=== PATIENT | female | born 1985 | race African-American/Black ===

== ENCOUNTER 2021-01-28 10:58 | Emergency (ER) | payer OTHER, SELFPAY ==
[2021-01-28 11:09] VITALS: BP 127/72; PULSE 79; RESP 16; TEMP 37.2; O2SAT 100
[2021-01-28 11:35] VITALS: BP 127/72; PULSE 79; RESP 16; TEMP 37.2; O2SAT 100
--- NOTE | 2021-01-28 11:37 | ED.ABDPAIN ---
HPI - Abdominal Pain General Chief Complaint: Abdominal Pain Stated Complaint: abd pain/hannah/nausea Source: patient and RN notes reviewed Mode of arrival: ambulatory History of Present Illness HPI narrative: This is a 35-year-old female presented to our urgent care with complaints of headache, abdominal pain, diarrhea that all occurred last night. According to patient she did not do anything at home to relieve her pain she also notes that the right increases the pain of her headache. The patient denies SOB, CP, palpitation, extremity numbness, lightheadedness, dizziness, constipation, chills, or fever. Related Data Home Medications Medication Instructions Recorded Confirmed cholecalciferol (vitamin D3) 01/28/21 levetiracetam [Keppra] 500 mg PO BID 01/28/21 01/28/21 Allergies Allergy/AdvReac Type Severity Reaction Status Date / Time No Known Allergies Allergy Verified 01/28/21 11:09 Review of Systems Review of Systems: A 14 organ system Review of Systems was performed and pertinent positives included in the HPI, otherwise remaining ROS is negative. [facility] Family History Family History (Updated 01/28/21 @ 11:38 by KIET DavisonP-C) Other Family history non-contributory Exam Narrative: GENERAL: This is a well-nourished, well-developed patient, in no apparent distress. HEAD: normocephalic, atraumatic. EYES: PERRL. Sclera clear/white. Vision is grossly intact. EARS: External ears normal, auditory canals clear and without drainage, TMs normal without perforation. Hearing grossly intact. NOSE: External nose normal with no obvious nasal discharge, nares without redness, no rhinorrhea. THROAT: Mucous membranes moist, posterior pharynx clear. NECK: Neck supple, non-tender without lymphadenopathy, masses or thyromegaly. CARDIOVASCULAR: Regular rate and rhythm without murmurs, gallops, or rubs. RESPIRATORY: Clear to auscultation. Breath sounds equal bilaterally. No wheezes, rales, or rhonchi. GASTROINTESTINAL: Abdomen soft, non-tender, nondistended. Bowel sounds are active. No hepato-splenomegaly, or palpable masses. No guarding. SKIN: warm, intact with no suspicious lesions or rash, good texture and turgor. NEURO: awake, alert, and oriented to person, place and time. There were no obvious focal neurologic abnormalities. Steady gait EXTREMITIES: Normal range of motion. No edema. No calf tenderness. Negative Homans sign bilaterally. BACK: Nontender without deformity or crepitance. No flank tenderness. Course Course Emergency Course: Patient diagnosed with gastroenteritis instructed to remain hydrated and use [id number] medication for treat Vital Signs Vital signs: Vital Signs Temperature 98.9 F 01/28/21 11:09 Pulse Rate 79 01/28/21 11:09 Respiratory Rate 16 01/28/21 11:09 Blood Pressure 127/72 01/28/21 11:09 Pulse Oximetry 100 01/28/21 11:09 Temperature 98.9 F 01/28/21 11:35 Pulse Rate 79 01/28/21 11:35 Respiratory Rate 16 01/28/21 11:35 Blood Pressure 127/72 01/28/21 11:35 Pulse Oximetry 100 01/28/21 11:35 MDM - Abdominal Pain Differential Diagnosis Differential diagnosis: Likely abdominal pain, diverticulitis and gastroenteritis Discharge Plan Discharge Clinical Impression: Gastroenteritis Patient Disposition: Home, Self-Care Condition: Stable Instructions: Antibiotic Form, Gastroenteritis (ED) Additional Instructions: What are the symptoms of gastritis? - People with gastritis have no symptoms. When people do have symptoms, they are due to other conditions that can happen with gastritis, like ulcers. Symptoms from ulcers include: Pain in the upper belly Feeling bloated, or feeling full after eating a small amount of food Decreased appetite Nausea or vomiting Vomiting blood, or having black-colored bowel movements Feeling more tired than usual - This happens if people with gastritis get a condition called anemia. Should I call my doct
== END 2021-01-28 11:52 | disposition home or self-care (01) ==
PROVIDERS: Emergency Provider Nurse Practitioner
DX: K52.9 Noninfective gastroenteritis and colitis, unspecified (principal)
CPT/HCPCS: 99202; G0463

== ENCOUNTER 2021-02-17 14:14 | Emergency (ER) | payer OTHER, SELFPAY ==
[2021-02-17 14:29] VITALS: BP 117/68; PULSE 79; RESP 16; TEMP 37.3; O2SAT 98
--- NOTE | 2021-02-17 15:00 | ED.BACK ---
HPI - Back Pain/Injury General Chief Complaint: Back Pain/Injury Stated Complaint: NECK/BACK PAIN Time Seen by Provider: 02/17/21 15:00 Source: patient, RN notes reviewed and old records reviewed Mode of arrival: ambulatory Limitations: no limitations History of Present Illness HPI Narrative: 35-year-old female presents to the [facility] with complaints of neck and back pain since yesterday. Requesting an work note. Denies injury. No numbness or tingling in extremities. No loss retention of bowel or bladder. Pain or abdominal pain. Related Data Home Medications Medication Instructions Recorded Confirmed levetiracetam 500 mg PO DAILY 02/17/21 02/17/21 Allergies Allergy/AdvReac Type Severity Reaction Status Date / Time Penicillins Allergy Unknown Verified 02/17/21 15:06 Review of Systems Review of Systems: All systems reviewed & are unremarkable except as noted in HPI and below Constitutional: Constitutional: Reports no additional constitutional complaints, Denies chills and Denies fever(s) Eyes: Eyes: Reports no additional eye complaints ENT: Reports system reviewed and no additional complaints, except as documented Cardiovascular: Cardiovascular: Reports no additional cardiovascular complaints and Denies chest pain Respiratory: Respiratory: Reports no additional respiratory complaints, Denies chest congestion, Denies cough, Denies dyspnea and Denies wheezing Gastrointestinal: Gastrointestinal: Reports no additional gastrointestinal complaints, Denies abdominal pain, Denies diarrhea, Denies nausea and Denies vomiting Genitourinary: Genitourinary: Reports no additional female genitourinary complaints Musculoskeletal: Musculoskeletal: Reports as per HPI and Reports back pain (Lower) Integumentary/Breasts: Skin/Breast: Reports system reviewed and no additional complaints, except as docu Neurologic: Reports system reviewed and no additional complaints, except as documented Psychiatric: Psychiatric: Reports no additional psychiatric complaints Allergic/Immunologic: Allergic/Immunologic: Reports no additional allergic/immunologic complaints PMFSH Family History Family History Other Family history non-contributory Comments At the time of my signature, I reviewed and agree with the nursing past medical, surgical, social, and family history. There is no relevant family history pertinent to the patient complaint. Exam Const: General: healthy appearing, no acute distress and alert Nutritional Appearance: well nourished Orientation/consciousness: patient oriented x3 Limitations: no limitations HENMT: Head: normal to inspection Neck: Neck: normal visual inspection, no lymphadenopathy and no meningeal signs Chest: Chest palpation & inspection: normal inspection of the chest Resp: Effort & Inspection: normal respiratory effort Auscultation: clear to auscultation bilaterally Cardio: Rate: regular rate Rhythm: regular rhythm GI: GI Palp: Yes Soft to palpation and No Tenderness to palpation present (GI) Back/Spine/Pelvis: Back: no CVA tenderness Neuro: General: patient oriented x3, moves all extremities, no meningeal signs and no focal motor deficits Speech: normal speech Gait exam (Neuro): Normal gait present Extrem: General: normal to inspection Psych: Appearance: grossly normal and well kempt Mental Status: mental status grossly normal Affect: normal affect Attitude: cooperative Thought content: Yes Normal thought content present Course Course Emergency Course: Discharge instructions reviewed with patient, as well as provided in writing per nursing staff. The instructions also include specific and strict return/GO TO THE ER as well as f/u information. All questions have been answered, and the patient deny any further questions with discharge and discharge plan. Vital Signs Vital signs: Vital Signs Temperature 99.1 F 02/17/21 14:29 P
== END 2021-02-17 15:10 | disposition home or self-care (01) ==
PROVIDERS: Emergency Provider Nurse Practitioner
DX: S39.012A Strain of muscle, fascia and tendon of lower back, initial encounter (principal); X58.XXXA Exposure to other specified factors, initial encounter; G40.909 Epilepsy, unspecified, not intractable, without status epilepticus
CPT/HCPCS: 99213; G0463

== ENCOUNTER 2021-04-17 12:08 | Emergency (ER) | payer OTHER, SELFPAY ==
[2021-04-17 12:18] VITALS: BP 107/70; PULSE 61; RESP 18; TEMP 36.8; O2SAT 100
--- NOTE | 2021-04-17 12:22 | ED.DENTAL ---
HPI - Dental/Oral General Chief complaint: Dental/Oral Stated complaint: Head/tooth/back pain Time Seen by Provider: 04/17/21 12:22 Source: patient Mode of arrival: ambulatory Limitations: no limitations History of Present Illness HPI Narrative: Thu Cespedes is a 35 yo female with a PMH of seizures comes with dental pain in upper R molar and headache x 2 days Related Data Home Medications Medication Instructions Recorded Confirmed levetiracetam 500 mg PO DAILY 02/17/21 04/17/21 Allergies Allergy/AdvReac Type Severity Reaction Status Date / Time Penicillins Allergy Unknown Verified 02/17/21 15:06 Review of Systems Review of Systems: CONSTITUTIONAL: Denies fever, chills, sweats. Dental pain of the left EYES: Denies visual changes, redness, discharge. ENT: Denies rhinorrhea, congestion, sore throat, otalgia. CARDIOVASCULAR: Denies chest pain, palpitations, edema. RESPIRATORY: Denies dyspnea, wheezing, cough GASTROINTESTINAL: Denies abdominal pain, nausea, vomiting, diarrhea. GENITOURINARY: Denies dysuria, hematuria, abnormal discharge SKIN: Denies rash or itching. NEUROLOGIC: Denies numbness, or focal weakness. PSYCHIATRIC: Denies anxiety or depression. PMFSH Past Medical History Medical History Chronic dental pain Seizures Family History Family History Other Family history non-contributory Social History Social History (Updated 04/17/21 @ 12:38 by Rachael Lua CNP) Smoking status: Never smoker Alcohol intake: never Comments At time of signature, I agree with nursing past medical, surgical, social and family history. There is no relevant family history pertinent to the presenting complaint. Exam Narrative: GENERAL: This is a well-nourished, well-developed patient, in mild distress. HEAD: normocephalic, atraumatic. EYES: . Sclera clear/white. Vision is grossly intact. EARS: External ears normal, . Hearing grossly intact. NOSE: External nose normal without nasal discharge, nares without redness, no rhinorrhea. Mouth: poor dentition, R upper teeth appear chipped, 1 loose THROAT: Mucous membranes moist, posterior pharynx NECK: Neck supple, non-tender CARDIOVASCULAR: Regular rate and rhythm without murmurs, gallops, or rubs. RESPIRATORY: Clear to auscultation. Breath sounds equal bilaterally. No wheezes, rales, or rhonchi. GASTROINTESTINAL: Abdomen soft, non-tender, SKIN: warm, intact with no suspicious lesions or rash, good texture and turgor. NEURO: awake, alert, and oriented to person, place and time. There were no obvious focal neurologic abnormalities. Steady gait EXTREMITIES: Normal range of motion. BACK: Nontender without deformity plan to resume Course Course Emergency Course: Patient comes to [facility] with right upper molar dental pain has been going on for few days that she states is getting worse she is allergic to penicillin so is usually given clindamycin and high-dose ibuprofen and Tylenol No. 3 for pain; patient needs a work excuse also for today Level of Care: Express Care Visit Vital Signs Vital signs: Vital Signs Temperature 98.3 F 04/17/21 12:18 Pulse Rate 61 04/17/21 12:18 Respiratory Rate 18 04/17/21 12:18 Blood Pressure 107/70 04/17/21 12:18 Pulse Oximetry 100 04/17/21 12:18 Temperature 98.3 F 04/17/21 12:18 Pulse Rate 61 04/17/21 12:18 Respiratory Rate 18 04/17/21 12:18 Blood Pressure 107/70 04/17/21 12:18 Pulse Oximetry 100 04/17/21 12:18 MDM - Dental/Oral Differential Diagnosis Differential diagnosis: Likely gingival abscess, dental caries, toothache, dental abscess, fracture of tooth and other Critical Care Time Critical Care Time Critical Care Time: No Discharge Plan Discharge Clinical Impression: Toothache Patient Disposition: Home, Self-Care Condition: Stable Instructions: Antib
== END 2021-04-17 12:54 | disposition home or self-care (01) ==
PROVIDERS: Emergency Provider Nurse Practitioner
DX: K08.89 Other specified disorders of teeth and supporting structures (principal); G40.909 Epilepsy, unspecified, not intractable, without status epilepticus
CPT/HCPCS: 99213; G0463

== ENCOUNTER 2022-01-25 12:43 | Emergency (ER) | payer OTHER, SELFPAY ==
[2022-01-25 12:55] VITALS: BP 110/75; PULSE 79; RESP 18; TEMP 37.3; O2SAT 100
--- NOTE | 2022-01-25 13:18 | ED.GENADULT ---
HPI - General Adult General Chief complaint: Headache Stated complaint: Headache, Abdominal Pain Time Seen by Provider: 01/25/22 12:55 Source: patient, RN notes reviewed and old records reviewed Mode of arrival: ambulatory Limitations: no limitations History of Present Illness HPI narrative: 36-year-old female presents to the [facility] with complaints of feeling fevers, chills, sweats and having a headache that started at 4:00 a.m. this morning. Patient reports pain a 03/02. Has not taken anything for pain. States that she did take her Keppra this morning. Requesting a work note Related Data Home Medications Medication Instructions Recorded Confirmed levetiracetam 500 mg tablet 500 mg PO BID 02/17/21 01/25/22 Allergies Allergy/AdvReac Type Severity Reaction Status Date / Time Penicillins Allergy Unknown Verified 02/17/21 15:06 Review of Systems Review of Systems: All systems reviewed & are unremarkable except as noted in HPI and below Constitutional: Constitutional: Reports as per HPI, Reports chills and Reports headache(s) Eyes: Eyes: Reports no additional eye complaints ENT: Reports system reviewed and no additional complaints, except as documented Cardiovascular: Cardiovascular: Reports no additional cardiovascular complaints, Denies chest pain and Denies dyspnea Respiratory: Respiratory: Reports no additional respiratory complaints, Denies chest congestion, Denies cough and Denies dyspnea Gastrointestinal: Gastrointestinal: Reports no additional gastrointestinal complaints, Denies abdominal pain, Denies nausea and Denies vomiting Musculoskeletal: Musculoskeletal: Reports no additional musculoskeletal complaints Integumentary/Breasts: Skin/Breast: Reports system reviewed and no additional complaints, except as docu Neurologic: Reports system reviewed and no additional complaints, except as documented Psychiatric: Psychiatric: Reports no additional psychiatric complaints Allergic/Immunologic: Allergic/Immunologic: Reports no additional allergic/immunologic complaints [facility] Past Medical History Medical History Chronic dental pain Seizures Family History Family History Other Family history non-contributory Social History Social History Smoking status: Never smoker Alcohol intake: never Comments At the time of my signature, I reviewed and agree with the nursing past medical, surgical, social, and family history. There is no relevant family history pertinent to the patient complaint. Exam Const: General: cooperative, healthy appearing, comfortable, no acute distress, well developed, alert, average body habitus and well nourished Nutritional Appearance: average body habitus and well nourished Orientation/consciousness: patient oriented x3 Limitations: no limitations HENMT: Head: normal to inspection Ears: hearing grossly normal bilaterally and external ears normal Face/Nose/Sinus: Normal external nose present, Normal nares present, Normal nasal mucous membranes and turbinates present and normal facial exam Face and sinus: normal facial exam Mouth: Yes Normal oral and palatal mucosa present, Yes lip normal and Yes moist mucous membranes Throat: posterior oropharynx normal and uvula midline Eyes: General: appearance normal, both eyes and all related structures Alignment and Position: alignment normal Periorbital: periorbital findings normal Conjunctivae: conjunctivae normal Pupils: Equal, round and reactive pupils present EOM: EOMs intact bilaterally Neck: Neck: normal visual inspection, full ROM, no lymphadenopathy and no meningeal signs Chest: Chest palpation & inspection: normal inspection of the chest Resp: Effort & Inspection: normal respiratory effort and able to speak in complete sentences Auscultation: clear
== END 2022-01-25 14:00 | disposition home or self-care (01) ==
PROVIDERS: Emergency Provider Nurse Practitioner
DX: H51.9 Unspecified disorder of binocular movement (principal); G40.909 Epilepsy, unspecified, not intractable, without status epilepticus
CPT/HCPCS: 99211; G0463

== ENCOUNTER 2022-08-23 13:17 | Emergency (ER) | payer OTHER, SELFPAY ==
[2022-08-23 13:31] VITALS: BP 126/86; PULSE 63; RESP 16; TEMP 37.5; O2SAT 99
--- NOTE | 2022-08-23 14:02 | ED.GENADULT ---
HPI - General Adult General Chief complaint: Nausea/Vomiting/Diarrhea Stated complaint: Gagging, throwing up Time Seen by Provider: 08/23/22 14:02 Source: patient and RN notes reviewed Mode of arrival: ambulatory Limitations: no limitations History of Present Illness HPI narrative: 37-year-old female with a history of seizure disorder presented for complaints of vomiting for 4 days following seizure activity. States she usually has a brief period of decreased appetite following seizures, but the vomiting is persistent. She is able to keep water down but unable to keep food down. Reports lower abdominal pain only when vomiting. Endorses feeling drained. she was admitted to an outside hospital for the seizure activity, and was told to start new medication Vimpat; however she does not know if she is supposed to continue the Keppra. States she cannot find her dc paperwork. Patient does not recall the hospitalization. She currently denies abdominal pain, nausea, diarrhea, fevers or chills. She denies headache, vision changes, photophobia etc.. She states she tried to contact her neurologist but did not receive a return call. Related Data Home Medications Medication Instructions Recorded Confirmed levetiracetam 500 mg tablet 500 mg PO BID 02/17/21 01/25/22 lacosamide 100 mg tablet mg 08/23/22 lacosamide 50 mg tablet mg 08/23/22 Allergies Allergy/AdvReac Type Severity Reaction Status Date / Time Penicillins Allergy Unknown Verified 08/23/22 13:29 Review of Systems Review of Systems: CONSTITUTIONAL: Denies body aches, fever, chills ENT: Denies rhinorrhea, congestion CARDIOVASCULAR: Denies chest pain, palpitations, or edema. RESPIRATORY: Denies cough or dyspnea. GASTROINTESTINAL: Endorses nausea, vomiting Denies abdominal pain, hematochezia, melena, , diarrhea GENITOURINARY: Denies dysuria, hematuria, or CVA tenderness. SKIN: Denies rash, itching, or wounds. MUSCULOSKELETAL: Denies back pain, joint pain, or myalgia. NEUROLOGIC: Denies headache, numbness, tingling, or weakness. All systems reviewed & are unremarkable except as noted in HPI and below PMFSH Past Medical History Medical History Chronic dental pain Goiter Seizures Family History Family History Other Family history non-contributory Social History Social History Smoking status: Never smoker Alcohol intake: never Comments At time of signature, I have reviewed and agree with nursing past medical, surgical, social and family history unless otherwise noted. Please see nursing chart for further information. There is no relevant family history pertinent to the presenting complaint Exam Narrative: GENERAL: Well-appearing, and in no acute distress. EYES: EOMI. Conjunctivae normal. ENT: Mucous membranes pink and moist. CHEST: No respiratory distress. Clear to auscultation. HEART: Regular rate and rhythm. No murmur appreciated. Normal peripheral pulses. ABDOMEN: abd soft, nondistended, normal active bowel sounds. Nontender abdomen; No guarding, rebound tenderness, asymmetry EXTREMITIES: Normal range of motion. No edema. SKIN: Warm, dry, no rash. Capillary refill normal. Normal skin turgor. NEURO: No focal deficits. Alert and oriented x3. PSYCH: Normal affect. Course Course Emergency Course: Patient is aware of diagnosis, understands and agrees to treatment plan. Anticipatory guidance given. Patient agrees to follow-up as directed and is aware of reasons to seek care at the emergency department. Portions of this record may have been created with voice recognition software Level of Care: Express Care Visit Vital Signs Vital signs: Vital Signs Temperature 99.5 F 08/23/22 13:31 Pulse Rate 63 08/23/22 13:31 Respiratory Rate 16 08/23/22 13:31 Bloo
== END 2022-08-23 14:22 | disposition home or self-care (01) ==
PROVIDERS: Emergency Provider Nurse Practitioner Family
DX: R11.2 Nausea with vomiting, unspecified (principal); E04.9 Nontoxic goiter, unspecified; G40.909 Epilepsy, unspecified, not intractable, without status epilepticus
CPT/HCPCS: 99213; G0463